=== PATIENT | male | born 1990 | race Caucasian/White ===

== ENCOUNTER 2019-11-13 14:13 | Emergency (ER) | payer BC, OTHER ==
[~2019-11-13] VITALS: Ht 160 cm; Wt 72.6 kg
[~2019-11-13 14:13] MED LIST: MOTRIN800 MG PO
[2019-11-13 14:18] VITALS: BP 149/96
== END 2019-11-13 15:04 | disposition home or self-care (01) ==
LOC: ED 14:13
DX: S05.01XA Injury of conjunctiva and corneal abrasion without foreign body, right eye, initial encounter (principal); H02.842 Edema of right lower eyelid; H02.841 Edema of right upper eyelid; Z88.8 Allergy status to other drugs, medicaments and biological substances; X58.XXXA Exposure to other specified factors, initial encounter; Y93.89 Activity, other specified; Y92.89 Other specified places as the place of occurrence of the external cause; Y99.8 Other external cause status

== ENCOUNTER 2022-02-24 12:08 | Emergency (ER) | payer OTHER ==
[~2022-02-24] VITALS: Ht 162.5 cm; Wt 68.0 kg
[2022-02-24 12:18] VITALS: BP 155/78
== END 2022-02-24 15:01 | disposition home or self-care (01) ==
LOC: ED 12:08
DX: S82.891A Other fracture of right lower leg, initial encounter for closed fracture (principal); Z88.6 Allergy status to analgesic agent; W11.XXXA Fall on and from ladder, initial encounter; Y93.89 Activity, other specified; Y92.89 Other specified places as the place of occurrence of the external cause; Y99.9 Unspecified external cause status